=== PATIENT | male | born 1975 | race Two or more races ===

== ENCOUNTER 2018-04-04 22:11 | Emergency (ER) | payer BC ==
[~2018-04-04] VITALS: Ht 175.3 cm; Wt 145.1 kg
[~2018-04-04 22:11] MED LIST: AMOXICILLIN500 MG ORAL; IBUPROFEN600 MG ORAL; NKM
[2018-04-04] MEDS ORDERED: IBUPROFEN600 MG ORAL (23:40)
[2018-04-04] MEDS ORDERED: BACTRIM DS TAB1 EAC1 ORAL (23:40)
--- NOTE | 2018-04-04 23:41 | Emergency Room Report ---
History of Present Illness General Chief Complaint: Skin Rash/Abscess Source: Patient Present Illness [facility] This is a 43-year-old male who is right-hand dominant. He presents with chief complaint of finger pain. 3 weeks ago he was pulling read off of a scaffold and foreign puncture his right thumb. It was throbbing but no problem until a few days ago and is not swelling and pain became more severe. He thought it may still be a bone there. No fever or chills. Pain is 8 out of 10. Worse with palpation. No other injury. No drainage. Allergies: Coded Allergies: No Known Allergies (Unverified , 04/04/18) Patient History Past Medical History: see triage record, old chart reviewed Past Surgical History: none Pertinent Family History: none Social History: Denies: smoking Immunizations: other Reviewed Nursing Documentation: PMH: Agreed; PSxH: Agreed Nursing Documentation-PMH Past Medical History: No Stated History Review of Systems Eye: Denies: eye pain, blurred vision ENT: Denies: ear pain, nose congestion, throat swelling Respiratory: Denies: cough, shortness of breath Cardiovascular: Denies: chest pain, palpitations Gastrointestinal: Denies: abdominal pain, diarrhea, nausea, vomiting Musculoskeletal: Reports: joint pain; Denies: back pain Skin: Denies: rash Neurological: Denies: headache, numbness Endocrine: Denies: increased thirst, increased urine Hematologic/Lymphatic: Denies: easy bruising All Other Systems: negative except mentioned in HPI Physical Exam Vital Signs Date Time Temp Pulse Resp B/P (MAP) Pulse Ox O2 Delivery O2 Flow Rate FiO2 04/04/18 22:22 98.1 82 16 136/77 96 Room Air 98.1 vitals normal Sp02 EP Interpretation: reviewed, normal General Appearance: well appearing, no apparent distress, alert Head: normocephalic, atraumatic Eyes: bilateral eye PERRL, bilateral eye EOMI ENT: hearing grossly normal, normal pharynx Neck: full range of motion, supple, no meningismus Respiratory: chest non-tender, lungs clear, normal breath sounds Cardiovascular #1: regular rate, rhythm, no murmur Gastrointestinal: normal bowel sounds, non tender, no mass, no organomegaly, no bruit, non-distended Musculoskeletal: back normal, gait/station normal, normal range of motion, other - Right thumb: He has a paronychia but no felon. Neurologic: alert, oriented x3 Psychiatric: mood/affect normal Skin: warm/dry Procedures Incision and Drainage Incision and Drainage : Consent: Verbal Site: Right thumb Blade Size: 11 I & D Procedure: betadine prep Wound Location: upper extremity Patient Tolerated: Well Complications: None Progress Using 11 blade scalpel, I ran it along the base of the nail. There was moderate amount of pus expressed. No foreign body seen. Patient tolerated procedure without a problem. Medical Decision Making Diagnostic Impression: Primary Impression: Paronychia of thumb, right ER Course Patient with a paronychia of the right thumb. No foreign body. No felon. We' ll discharge home. Last Vital Signs Date Time Temp Pulse Resp B/P (MAP) Pulse Ox O2 Delivery O2 Flow Rate FiO2 04/04/18 22:22 98.1 82 16 136/77 96 Room Air 98.1 Status: improved Disposition: HOME, SELF-CARE Condition: Stable Scripts Ibuprofen* (MOTRIN*) 600 Mg Tablet 600 MG ORAL THREE TIMES A DAY, #30 TAB 0 Refills Prov: MENG WILSON M.D. 04/04/18 Trimethoprim/Sulfamethoxazole 160/800* (BACTRIM DS TABLET*) 1 Each Tablet 1 TAB ORAL Q12H, #14 TAB 0 Refills Prov: MENG WILSON M.D. 04/04/18 Referrals: [facility],REFERRING (PCP) Additional Instructions: Follow-up your in 2-3 days for recheck as needed. Return if symptom worsen. MENG WILSON M.D. April 04, 2018 23:41
[2018-04-04 23:47] VITALS: BP 140/72
[2018-04-04 23:48] VITALS: BP 136/77
== END 2018-04-04 23:48 | disposition home or self-care (01) ==
LOC: EMR 22:47
DX: L03.011 Cellulitis of right finger (principal)
CPT/HCPCS: 10060; 99283